=== PATIENT | female | born 1950 | race Hispanic/Latino ===

== ENCOUNTER 2018-03-17 10:41 | Emergency (ER) | payer MEDICARE, SELFPAY ==
[2018-03-17] MEDS ORDERED: Ketorolac Tromethamine 30 MG/ML VIAL ONE (11:19)
[2018-03-17] MEDS ORDERED: Acyclovir 800 mg Tablet PO SCH (11:30)
== END 2018-03-17 12:01 | disposition home or self-care (01) ==
LOC: ERS 10:41
DX: B02.9 Zoster without complications (principal); I10 Essential (primary) hypertension; F41.9 Anxiety disorder, unspecified; F31.9 Bipolar disorder, unspecified; E05.90 Thyrotoxicosis, unspecified without thyrotoxic crisis or storm; F20.9 Schizophrenia, unspecified
CPT/HCPCS: 96372; J1885